=== PATIENT | female | born 1990 | race Caucasian/White ===

== ENCOUNTER 2020-03-11 17:50 | Emergency (ER) | payer OTHER, SELFPAY ==
--- NOTE | ~2020-03-11 | XR_ITS ---
XR wrist RT min 3V DATE: 03/11/2020 18:27 INDICATION: Box fell on wrist. Generalized wrist and posterior metacarpal area pain TECHNIQUE: 4 views COMPARISON: None FINDINGS: No fracture or dislocation, periosteal reaction or bone destruction. Joint spaces are prese rved. No erosive change. IMPRESSION: Negative Reviewed, dictated and finalized at location A. IMPRESSION: Negative
[2020-03-11 18:03] VITALS: BP 108/72; PULSE 83; RESP 18; TEMP 36.7; O2SAT 99
--- NOTE | 2020-03-11 18:31 | ED.UPPEXIN ---
HPI - Extremity Injury (Upper) General Chief Complaint: Extremity Injury, Upper <Joyce Virk PA-C - Last Filed: 03/11/20 19:09> Stated Complaint: right wrist injury <Joyce Virk PA-C - Last Filed: 03/11/20 19:09> Time Seen by Provider: 03/11/20 18:03 <Joyce Virk PA-C - Last Filed: 03/11/20 19:09> Source: patient <Joyce Virk PA-C - Last Filed: 03/11/20 19:09> Mode of arrival: ambulatory <Joyce Virk PA-C - Last Filed: 03/11/20 19:09> Limitations: no limitations <Joyce Virk PA-C - Last Filed: 03/11/20 19:09> History of Present Illness HPI narrative: This is a 29 year old female that presents to the ER for right wrist injury today. Reports she was at work and a box was falling off of a top shelf and she went to catch it with her right wrist. Reports pain in the right wrist since. Worse with movement and relieved with rest. Denies decreased range of motion or numbness. <Joyce Virk PA-C - Last Filed: 03/11/20 19:09> Related Data Allergies/Adverse Reactions: Allergies Allergy/AdvReac Type Severity Reaction Status Date / Time No Known Allergies Allergy Unverified 12/26/17 20:20 <Joyce Virk PA-C - Last Filed: 03/11/20 19:09> Review of Systems Review of Systems: Narrative: CONSTITUTIONAL: Denies fever SKIN: Denies rash MUSCULOSKELETAL: Reports joint pain, and myalgia. NEUROLOGIC: Denies numbness <Joyce Virk PA-C - Last Filed: 03/11/20 19:09> All systems reviewed & are unremarkable except as noted in HPI and below <Joyce Virk PA-C - Last Filed: 03/11/20 19:09> REPLACED BY [facility] Past Medical History Medical History: Medical History (Updated 03/11/20 @ 19:08 by Joyce Virk PA-C) History of borderline personality disorder <Joyce Virk PA-C - Last Filed: 03/11/20 19:09> Social History Social History: Social History (Updated 03/11/20 @ 18:35 by Joyce Virk PA-C) Substance use: never <Joyce Virk PA-C - Last Filed: 03/11/20 19:09> Exam Narrative: Exam Narrative: GENERAL: Well-appearing, well-nourished, and in no acute distress. HEAD: Normocephalic, atraumatic. EYES: EOMI. EXTREMITIES: Normal range of motion. No edema or obvious deformity. Normal radial pulses. Normal sensation SKIN: Warm, dry, no rash. NEURO: No focal deficits. Alert and oriented x3. PSYCH: Normal mood and affect <Joyce Virk PA-C - Last Filed: 03/11/20 19:09> Course Vital Signs Vital signs: Vital Signs Temperature 36.7 C 03/11/20 18:03 Pulse Rate 83 03/11/20 18:03 Respiratory Rate 18 03/11/20 18:03 Blood Pressure 108/72 03/11/20 18:03 Pulse Oximetry 99 03/11/20 18:03 Temperature 36.7 C 03/11/20 18:03 Pulse Rate 86 03/11/20 19:30 Respiratory Rate 18 03/11/20 19:30 Blood Pressure 117/80 03/11/20 19:30 Pulse Oximetry 99 03/11/20 19:30 <Joyce Virk PA-C - Last Filed: 03/11/20 19:09> Vital Signs Temperature 36.7 C 03/11/20 18:03 Pulse Rate 83 03/11/20 18:03 Respiratory Rate 18 03/11/20 18:03 Blood Pressure 108/72 03/11/20 18:03 Pulse Oximetry 99 03/11/20 18:03 Temperature 36.7 C 03/11/20 18:03 Pulse Rate 86 03/11/20 19:30 Respiratory Rate 18 03/11/20 19:30 Blood Pressure 117/80 03/11/20 19:30 Pulse Oximetry 99 03/11/20 19:30 <Jazmyne Browning MD - Last Filed: 03/11/20 21:06> MDM - Extremity Injury (Upper) MDM Narrative Medical decision making narrative: Patient presents to the emergency department for right wrist injury sustained just prior to arrival. Right wrist x-ray is without acute findings. Patient was instructed on care of wrist sprain. She is to follow-up with primary care doctor. She was given warnings to return to the ER <Joyce Virk PA-C - Last Filed: 03/11/20 19:09> Imaging Data Radiologist's impression: ITS Impressions Wrist X-Ray 03/11/20 18:29 IMPRESSION: Negative
[2020-03-11 19:30] VITALS: BP 117/80; PULSE 86; RESP 18; O2SAT 99
== END 2020-03-11 19:32 | disposition home or self-care (01) ==
PROVIDERS: Emergency Provider Emergency Medicine; PCP Family Medicine
DX: S63.501A Unspecified sprain of right wrist, initial encounter (principal); S66.911A Strain of unspecified muscle, fascia and tendon at wrist and hand level, right hand, initial encounter; W20.8XXA Other cause of strike by thrown, projected or falling object, initial encounter
CPT/HCPCS: 73110; 99283

== ENCOUNTER 2023-05-12 15:44 | Outpatient (CLI) | payer OTHER, SELFPAY ==
[2023-05-12 15:57] LABS: Basophils Percent Auto 0.5 % (0.2-1.2); Eosinophils Absolute Auto 0.1 K/mm3 (0-0.3); Eosinophils Percent Auto 1.5 % (0-4.4); Hematocrit 37.2 % (37.0-47.0); Hemoglobin 11.5 g/dL (12.0-15.0); Immature Granulocyte Absolute 0.02 K/mm3 (0.00-0.031); Immature Granulocyte Percent A 0.3 % (0-0.5); Lymphocytes Absolute Auto 1.38 K/mm3 (0.9-3.2); Lymphocytes Percent Auto 21.2 % (18.3-44.2); Mean Corpuscular HGB Conc 30.9 g/dl (32-36); Mean Corpuscular Hemoglobin 24.8 pg (26-34); Mean Corpuscular Volume 80.3 fl (80-100); Mean Platelet Volume 9.2 fl (7.4-10.4); Monocytes Absolute Auto 0.4 K/mm3 (0.1-0.6); Monocytes Percent Auto 5.4 % (2.6-8.5); Neutrophils Absolute Auto 4.6 K/mm3 (1.3-6.7); Neutrophils Percent Auto 71.1 % (45.5-73.1); Platelet Count Result 425 k/mm3 (150-375); Red Blood Count 4.63 M/mm3 (4.2-5.4); Red Cell Distribution Width 18.2 % (11.5-14.5); White Blood Count 6.5 K/mm3 (4.5-10.0)
[2023-05-12 18:32] LABS: Iron 124 ug/dL (37-170)
[2023-05-12 18:55] LABS: Percent Iron Saturation 24 % (20-50)
[2023-05-12 18:59] LABS: Alanine Aminotransferase 15 U/L (6-35); Albumin Level 4.6 g/dL (3.5-5.1); Alkaline Phosphatase 69 U/L (38-126); Anion Gap 9 mmol/L (8-16); Aspartate Amino Transferase 34 U/L (14-36); Bilirubin,Total 0.3 mg/dL (0.2-1.3); Blood Urea Nitrogen 11 mg/dL (7-17); Calcium 9.4 mg/dL (8.4-10.2); Carbon Dioxide 25 mmol/L (22-30); Chloride 105 mmol/L (98-107); Estimated Glomerular Filt Rate > 60; Glucose 89 mg/dL (65-110); Potassium 4.2 mmol/L (3.4-5.0); Sodium 139 mmol/L (137-145)
[2023-05-12 20:03] LABS: Folic Acid 12.5 ng/mL (2.76->20)
[2023-05-18 05:04] LABS: Methylmalonic Acid 91 nmol/L (87-318)
[2023-05-20 09:53] LABS: Soluble Transferrin Receptor 1.93 mg/L (0.76-1.76)
== END 2023-05-12 15:45 | disposition home or self-care (01) ==
PROVIDERS: Nurse Practitioner Family; PCP Family Medicine; Visit Provider Internal Medicine Hematology & Oncology
DX: D50.0 Iron deficiency anemia secondary to blood loss (chronic) (principal)
CPT/HCPCS: 36415; 80053; 82607; 82728; 82746; 83540; 83550; 83921; 84238; 85025

== ENCOUNTER 2023-09-03 13:14 | Outpatient (CLI) | payer OTHER, SELFPAY ==
[2023-09-03 13:31] LABS: Basophils Percent Auto 0.3 % (0.2-1.2); Eosinophils Absolute Auto 0.1 K/mm3 (0-0.3); Eosinophils Percent Auto 1.3 % (0-4.4); Hematocrit 39.9 % (37.0-47.0); Hemoglobin 12.9 g/dL (12.0-15.0); Immature Granulocyte Absolute 0.02 K/mm3 (0.00-0.031); Immature Granulocyte Percent A 0.3 % (0-0.5); Lymphocytes Absolute Auto 1.66 K/mm3 (0.9-3.2); Lymphocytes Percent Auto 27.3 % (18.3-44.2); Mean Corpuscular HGB Conc 32.3 g/dl (32-36); Mean Corpuscular Volume 89.7 fl (80-100); Mean Platelet Volume 9.4 fl (7.4-10.4); Monocytes Absolute Auto 0.4 K/mm3 (0.1-0.6); Monocytes Percent Auto 5.9 % (2.6-8.5); Neutrophils Percent Auto 64.9 % (45.5-73.1); Platelet Count Result 315 k/mm3 (150-375); Red Blood Count 4.45 M/mm3 (4.2-5.4); Red Cell Distribution Width 16.2 % (11.5-14.5); White Blood Count 6.1 K/mm3 (4.5-10.0)
[2023-09-03 20:19] LABS: Iron 121 ug/dL (37-170)
[2023-09-03 20:28] LABS: Percent Iron Saturation 28 % (20-50)
[2023-09-03 20:35] LABS: Anion Gap 8 mmol/L (4-12); Blood Urea Nitrogen 16 mg/dL (7-17); Calcium 9.8 mg/dL (8.4-10.2); Carbon Dioxide 26 mmol/L (22-30); Chloride 106 mmol/L (98-107); Estimated Glomerular Filt Rate > 60; Glucose 88 mg/dL (65-110); Potassium 4.3 mmol/L (3.4-5.0); Sodium 140 mmol/L (137-145)
[2023-09-03 21:42] LABS: Folic Acid 9.5 ng/mL (2.76->20)
== END 2023-09-03 13:15 | disposition home or self-care (01) ==
LOC: ANHLAB 13:15
PROVIDERS: Nurse Practitioner Family; PCP Family Medicine; Visit Provider Internal Medicine Hematology & Oncology
DX: D51.9 Vitamin B12 deficiency anemia, unspecified (principal); D50.0 Iron deficiency anemia secondary to blood loss (chronic)
CPT/HCPCS: 36415; 80048; 82607; 82728; 82746; 83540; 83550; 85025

== ENCOUNTER 2024-05-10 12:36 | Outpatient (CLI) | payer OTHER, SELFPAY ==
[2024-05-10 12:57] LABS: Basophils Percent Auto 0.3 % (0.2-1.2); Eosinophils Absolute Auto 0.2 K/mm3 (0-0.3); Eosinophils Percent Auto 2.6 % (0-4.4); Hematocrit 39.7 % (37.0-47.0); Immature Granulocyte Absolute 0.01 K/mm3 (0.00-0.031); Immature Granulocyte Percent A 0.2 % (0-0.5); Lymphocytes Absolute Auto 1.56 K/mm3 (0.9-3.2); Lymphocytes Percent Auto 25.2 % (18.3-44.2); Mean Corpuscular HGB Conc 32.7 g/dl (32-36); Mean Corpuscular Hemoglobin 29.8 pg (26-34); Mean Corpuscular Volume 91.1 fl (80-100); Mean Platelet Volume 9.1 fl (7.4-10.4); Monocytes Absolute Auto 0.3 K/mm3 (0.1-0.6); Monocytes Percent Auto 4.7 % (2.6-8.5); Neutrophils Absolute Auto 4.1 K/mm3 (1.3-6.7); Platelet Count Result 347 k/mm3 (150-375); Red Blood Count 4.36 M/mm3 (4.2-5.4); Red Cell Distribution Width 13.4 % (11.5-14.5); White Blood Count 6.2 K/mm3 (4.5-10.0)
[2024-05-10 16:38] LABS: Alanine Aminotransferase 13 U/L (6-35); Albumin Level 4.4 g/dL (3.5-5.1); Alkaline Phosphatase 64 U/L (38-126); Anion Gap 8 mmol/L (4-12); Aspartate Amino Transferase 46 U/L (14-36); Bilirubin,Total 0.4 mg/dL (0.2-1.3); Blood Urea Nitrogen 11 mg/dL (7-17); Calcium 9.3 mg/dL (8.4-10.2); Carbon Dioxide 25 mmol/L (22-30); Chloride 107 mmol/L (98-107); Cholesterol 167 mg/dL (0-200); Estimated Glomerular Filt Rate > 60; Glucose 86 mg/dL (65-110); HDL Direct 52 mg/dL; Potassium 4.3 mmol/L (3.4-5.0); Sodium 140 mmol/L (137-145); Triglycerides 83 mg/dL (<150)
[2024-05-10 16:39] LABS: Anion Gap 8 mmol/L (4-12); Blood Urea Nitrogen 11 mg/dL (7-17); Calcium 9.2 mg/dL (8.4-10.2); Carbon Dioxide 24 mmol/L (22-30); Chloride 107 mmol/L (98-107); Estimated Glomerular Filt Rate > 60; Glucose 88 mg/dL (65-110); Potassium 4.1 mmol/L (3.4-5.0); Sodium 139 mmol/L (137-145)
[2024-05-10 16:44] LABS: Iron 109 ug/dL (37-170)
[2024-05-10 16:48] LABS: LDL Cholesterol Direct 87 mg/dL
[2024-05-10 16:54] LABS: Percent Iron Saturation 22 % (20-50)
[2024-05-10 17:04] LABS: Free T4 Free Thyroxine 0.84 ng/dL (0.78-2.19)
[2024-05-10 17:07] LABS: Thyroid Stimulating Hormone 0.921 uIU/mL (0.465-4.680); Total Triiodothyronine (T3) 1.59 NG/ML (0.97-1.69)
== END 2024-05-10 12:37 | disposition home or self-care (01) ==
LOC: ANHLAB 12:37
PROVIDERS: PCP Family Medicine; Visit Provider Internal Medicine Hematology & Oncology
DX: D50.9 Iron deficiency anemia, unspecified (principal); E78.5 Hyperlipidemia, unspecified; R53.83 Other fatigue
CPT/HCPCS: 36415; 80048; 80053; 80061; 82607; 82728; 83540; 83550; 84439; 84443; 84480; 85025

== ENCOUNTER 2024-08-12 10:25 | Outpatient (CLI) | payer OTHER, SELFPAY ==
[2024-08-12 10:43] LABS: Hematocrit 38.1 % (37.0-47.0); Hemoglobin 12.7 g/dL (12.0-15.0); Mean Corpuscular HGB Conc 33.3 g/dl (32-36); Mean Corpuscular Hemoglobin 30.5 pg (26-34); Mean Corpuscular Volume 91.6 fl (80-100); Mean Platelet Volume 9.3 fl (7.4-10.4); Platelet Count Result 304 k/mm3 (150-375); Red Blood Count 4.16 M/mm3 (4.2-5.4); Red Cell Distribution Width 13.2 % (11.5-14.5); White Blood Count 7.2 K/mm3 (4.5-10.0)
--- OUTSIDE RECORDS SUMMARY | 2024-08-12 12:03 | XMS_ITS | Clinical Summary ---
Author Organization [facility] [address] [place] [id number] Care Team Providers Care Tuna Purse Seiner Name Role Phone Jeff Quispe MD Primary Care Provider [phone] Allergies Active Allergy Reactions Criticality Noted Date Comments Cat Dander Eye irritation Low 06/04/2023 Pollen Extracts Eye irritation Low 06/04/2023 Medications lamoTRIgine (LaMICtal) 100 mg tablet Take 1 tablet (100 mg total) by mouth daily 05/29/2023 Active Junel FE 1.5/30, 28, 1.5 mg-30 mcg (21)/75 mg (7) per tablet Take 1 tablet by mouth daily 05/29/2023 Active rosuvastatin (CRESTOR) 20 mg tablet Take 1 tablet (20 mg total) by mouth daily Active escitalopram (LEXAPRO) 20 mg tablet Take 1 tablet (20 mg total) by mouth daily Active busPIRone (BUSPAR) 15 mg tablet Take 1 tablet (15 mg total) by mouth 3 (three) times a day 03/17/2023 Active cetirizine (ZyrTEC) 10 mg tablet Take 1 tablet (10 mg total) by mouth daily Active Active Problems No known active problems Surgical History Surgery Date Site/Laterality Comments FOOT SURGERY TONSILLECTOMY 06/02/2011 - 06/01/2012 Medical History Medical History Date Comments ADHD (attention deficit hyperactivity disorder) Anemia Anxiety Hypercholesteremia Allergic rhinitis Family History * Patient is adopted Medical History Relation Name Comments Alcohol abuse Brother Mental illness Brother Alcohol abuse Father Mental illness Father Alcohol abuse Mother Mental illness Mother Alcohol abuse Sister Mental illness Sister Relation Name Status Comments Brother Father Mother Sister Social History Tobacco Use Types Packs/Day Years Used Date Smoking Tobacco: Never Tobacco Cessation:Counseling Given: Not Answered Personal Safety Answer Date Recorded Getting School Help Needed Not on file 05/19 Comments Unknown Sex and Gender Information Value Date Recorded Sex Assigned at Not on file 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 Gender Identity Not on file Sexual Orientation Not on file Obstetrics History Plan of Treatment Health Maintenance Due Date Last Done Comments Cervical Cancer Screening 1989 Depression Screening 1989 Hepatitis C Screening 1989 Varicella Vaccines (1 of 2 - 13+ 2-dose series) 2002 Regular Well Visit/Exam 18-64 2007 DTaP/Tdap/Td Vaccine (6 - Tdap) 06/22/2008 06/21/2008, 01/11/2003, 01/24/1995, Additional history exists HPV Vaccines (2 - 3-dose series) 07/19/2008 06/21/2008 Covid-19 Vaccine ( season) 2024 04/29/2021, 10/11/2020, 09/13/2020 Influenza Vaccine (#1) 2024 04/03/2020 Hepatitis B Screening Completed 09/24/2000 , 03/10/2000, 10/20/1999 Pneumococcal vaccine <65 Aged Out No longer eligible based on patient's age to complete this topic Insurance [facility] Care Teams Tuna Purse Seiner Relationship Specialty Start Date End Date Jeff Quispe MD PCP - General Family Medicine 04/29/23
--- OUTSIDE RECORDS SUMMARY | 2024-08-12 12:03 | XMS_ITS | Clinical Summary ---
Author Organization [facility] [address] Address [address] [place] [address] Care Team Providers Care Supervisor Offset Plate Preparation Name Role Phone Jeff Quispe MD Primary Care Provider + [phone] Allergies No known active allergies Medications buspirone HCl (BUSPIRONE ORAL) Take 15 mg by mouth daily. Active norethindrone ac-eth estradiol (JUNEL ., ORAL) Take by mouth. Active cetirizine (ZyrTEC) 10 mg tablet Take 10 mg by mouth daily. Active lamoTRIgine (LaMICtal) 150 mg tablet Take 150 mg by mouth daily. Active escitalopram oxalate (LEXAPRO) 20 mg tablet Take 20 mg by mouth daily. Active rosuvastatin (CRESTOR) 20 mg tablet Take 20 mg by mouth daily. Active Active Problems No known active problems Encounters Date Type Department Care Team Description 08/07/2024 External Device Data [facility]STRACTION Provider, Abstract 08/04/2024 External Device Data [facility] Provider, Abstract 07/21/2024 External Device Data [facility]CTION Provider, Abstract 06/30/2024 External Device Data [facility] Provider, Abstract 06/24/2024 External Device Data [facility]CTION Provider, Abstract 05/14/2024 10:45 AM CHILDCARE WORKER Office Visit [facility] Oncology and Hematology - [address] [address] Jay Andersen MD Iron deficiency anemia due to chronic blood loss (Primary Dx); Anemia due to vitamin B12 deficiency, unspecified B12 deficiency type from Last 3 Months Family History Medical History Relation Name Comments No Known Problems Brother Alcohol abuse Father unsure Alcohol abuse Mother unsure No Known Problems Sister Relation Name Status Comments Brother Alive Father unsure Alive Mother unsure Sister Alive Social History Tobacco Use Types Packs/Day Years Used Date Smoking Tobacco: Never Smokeless Tobacco: Never Tobacco Cessation:Counseling Given: Not Answered Alcohol Use Standard Drinks/Week Comments Yes 0 (1 standard drink = 0.6 oz pur e alcohol) Socially once a year Comments Unknown Sex and Gender Information Value Date Recorded Sex Assigned at Not on file Legal Sex Female 11:00 AM CHILDCARE WORKER Gender Identity Not on file Sexual Orientation Not on file Last Filed Vital Signs Vital Sign Reading Time Taken Comments Blood Pressure 109/70 05/14/2024 10:51 AM CHILDCARE WORKER Pulse 80 05/14/2024 10:51 AM CHILDCARE WORKER Temperature 36.6 C (97.8 F) 05/14/2024 10:51 AM CHILDCARE WORKER Respiratory Rate 16 05/14/2024 10:51 AM CHILDCARE WORKER Oxygen Saturation 98% 05/14/2024 10:51 AM CHILDCARE WORKER Inhaled Oxygen Concentration - - Weight 70.3 kg (155 lb) 05/14/2024 10:51 AM CHILDCARE WORKER Height 157.5 cm (5' 2 ) 05/12/2023 2:46 PM CHILDCARE WORKER Body Mass Index 28.35 05/12/2023 2:46 PM CHILDCARE WORKER Plan of Treatment Upcoming Encounters Date Type Department Care Team (Late st Contact Info) Description 08/13/2024 12:15 PM CDT Office Visit [facility] Oncology and Hematology - [address] [facility] [address] [place] [address] Jay Andersen MD [address] [facility] [address] [place] [address] Health Maintenance Due Date Last Done Comments Pre-Diabetes and Diabetes Screening 1989 DTAP/TDAP/TD VACCINES (1 - Tdap) 2008 HEPATITIS B VACCINES (1 of 3 - 19+ 3-dose series) 2008 CERVICAL CANCER SCREENING 2019 Preventative Visit-Managed Medicaid 10/12/2023 10/10/2022 INFLUENZA VACCINE (#1) 2024 HPV VACCINES Aged Out No longer eligi ble based on patient's age to complete this topic Insurance [facility] MEDICAID Care Teams Supervisor Offset Plate Preparation Relationship Specialty Start Date End Date Jeff Quispe MD [address] [place] [address] PCP - General Family Practice 05/12/23
--- OUTSIDE RECORDS SUMMARY | 2024-08-12 12:03 | XMS_ITS | Clinical Summary ---
Author Organization 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 Gender Identity Not on file Sexual Orientation Not on file Plan of Treatment Health Maintenance Due Date Last Done Comments Hepatitis C Virus (HCV) Screening 1989 TdaP Immunization 1989 Hepatitis B Immunization (1 of 3 - 19+ 3-dose series) 2008 Pap Smear 2010 Cervical Cancer Screening (CCS) 2019 HPV/Cotest 2019 Influenza Immunization (#1) 2024 SARS-COV-2 Immunization ( season) 2024 Respiratory Syncytial Virus (RSV) Immunization (Adult) (1 - 1-dose 75+ series) 2064 Meningococcal Immunization (ACWY) Aged Out No longer eligible based on patient's age to complete this topic Pneumococcal Immunization Combined Aged Out No longer eligible based on patient's age to complete this topic Rotavirus Immunization Aged Out No lo nger eligible based on patient's age to complete this topic
--- OUTSIDE RECORDS SUMMARY | 2024-08-12 12:03 | XMS_ITS | Data Portability ---
Author Organization [facility] [place] Address [address] [place] [address] [place] [address] Care Team Providers Care Clerk Of Court Name Role Phone ABRANPEGMICHELE Primary Care Provider Assessment Encounter Date Assessment Date Assessment LastModified by Organization Details LastModified Time 03/09/2024 03/09/2024 Patient here for suspected UTI. Patient c/o urgency, frequency and burning with urination. Patient left urine sample for testing. Testing showed positive UTI. Per Dr Banegas, patient to have Cipro [email or web address] Not available 03/09/2024 10:46:36 Plan of Treatment Reminders Order Date Submit Date Provider Last Modified By Organization Details Last Modified Time Details Appointments [facility] 2024 10:00A M KATTY Villalta Not available Not available Not available Lab urinalysi s, dipstick 2023 024 [email or web address] [place], [address], [place], [address], 03/09/2024 10:47:16 culture, urine 2023 024 [facility] (Lab), [address], [place], [address], 03/11/2024 06:38:40 Referral None recorded. Procedures None recorded. Surgeries hysterosc opy, surgical, with biopsy of endometri um and/or polypecto my (SURG) 2022 023 [id number] [facility], [address], [address], [place], [address], 03/11/2023 17:42:19 Imaging US, pelvis 2022 023 [email or web address] [place], [address], [place], [address], 02/22/2023 20:43:27 US, transvagi nal 2022 023 [email or web address] [place], [address], [place], [address], 02/22/2023 20:43:27 Medication Orders ciproflox acin 500 mg tablet 2023 024 [id number], [address], [place], [id number], 03/09/2024 10:57:15 metformin 500 mg tablet 2022 023 [facility] #[id number], [address], [place], [id number], 03/07/2023 12:34:04 Loestrin Fe 1.5/30 (28-Day) 1.5 mg-30 mcg (21)/75 mg (7) tablet [address] [facility][id number], [address], [place], [id number], 03/07/2023 18:24:56 Patient TargetsNo targets recorded. Patient InstructionsNo instructions recorded. Reason for Referral None Reported. Results Created Date Observation Date Name Description Value Unit Range Abnormal Flag Note LastModifiedBy Organization Detail LastModifiedTime 02/22/2002/21/2023 CBC W/DIF F WBC 4.6 10'3/ uL 3.6-10 .2 Not Available [facility] (Lab) [address], [place], [address], 03/03/2023 14:28:45 02/22/20 23 02/21/2023 CBC W/DIF F RBC 4.34 10'6/ uL (based on docume nted legal sex) 4.10-5 .30 Not Available [facility] (Lab) [address], [place], [address], 03/03/2023 14:28:45 02/22/20 23 02/21/2023 CBC W/DIF F HGB 9.6 g/dL (based on docume nted legal sex) 11.9-1 5.8 low Not Available [facility] (Lab) [address], [place], [address], 03/03/2023 14:28:45 02/22/20 23 02/21/2023 CBC W/DIF F HCT 33.4 % (based on docume nted legal sex) 37.4-4 8.3 low Not Available [facility] (Lab) [address] , [place], [address], 03/03/2023 14:28:45 02/22/20 23 02/21/2023 CBC W/DIF F MCV 77.0 fL 82.0-9 9.0 low Not Available [facility] (Lab) [address], [place], [address], 03/03/2023 14:28:45 02/22/20 23 02/21/2023 CBC W/DIF F MCH 22.1 pg 27.0-3 3.0 low Not Available [facility] (Lab) [address] [facility], [place], [address], 03/03/2023 14:28:45 02/22/20 23 02/21/2023 CBC W/DIF F MCHC 28.7 g/dL 32.0-3 6.0 low Not Available [facility] (Lab) [address] [facility], [place], [address], 03/03/2023 14:28:45 02/22/20 23 02/21/2023 CBC W/DIF F RDW 19.0 % 11.0-1 5.0 high Not Available [facility] (Lab) [address], [place], [address], 03/03/2023 14:28:45 02/22/20 23 02/21/2023 CBC W/DIF F plt 346 10'3/ uL 150-45 0 Not Available [facility] (Lab) [address], [place], [address], 03/03/2023 14:28:45 02/22/20 23 02/21/2023 CBC W/DIF F MPV 9.8 fL 9.8-12 .7 Not Available [facility] (Lab) [address], [place], [address], 03/03/2023 14:28:45 02/22/20 23 02/21/2023 CBC W/DIF F NRBC's 0.0 % 0 Not Available [facility] (Lab) [address], [place], [address], 03/03/2023 14:28:45 02/22/20 23 02/21/2023 CBC W/DIF F absolute NRBCs 0.0 10'3/ uL 0 Not Available [facility] (Lab) [address], [place], [address], 03/03/2023 14:28:45 02/22/20 23 02/21/2023 CBC W/DIF F neutrophils 58.8 % 37.0-7 2.0 Not Available [facility] (Lab) [address], [place], [address], 03/03/2023 14:28:45 02/22/20 23 02/21/2023 CBC W/DIF F lymphocytes 32.3 % 16.0-4 8.0 Not Available [facility] (Lab) [address], [place], [address], 03/03/2023 14:28:45 02/22/20 23 02/21/2023 CBC W/DIF F monocytes 6.2 % 4.0-14 .0 Not Available [facility] (Lab) [address], [place], [address], 03/03/2023 14:28:45 02/22/20 23 02/21/2023 CBC W/DIF F eosinophils 1.8 % 0.0-9. 0 Not Available [facility] (Lab) [address] [facility], [place], [address], 03/03/2023 14:28:45 02/22/20 23 02/21/2023 CBC W/DIF F basophils 0.7 % 0.0-2. 0 Not Available [facility] (Lab) [address] [facility], [place], [address], 03/03/2023 14:28:45 02/22/20 23 02/21/2023 CBC W/DIF F immature granulocytes 0.2 % no define d refere nce range Not Available [facility] (Lab) [address] [facility], [place], [address], 03/03/2023 14:28:45 02/22/20 23 02/21/2023 CBC W/DIF F absolute neutrophils 2.7 10'3/ uL 1.1-6. 0 Not Available [facility] (Lab) [address] [facility], [place], [address], 03/03/2023 14:28:45 02/22/20 23 02/21/2023 CBC W/DIF F absolute lymphocytes 1.5 10'3/ uL 0.7-3. 4 Not Available [facility] (Lab) [address] [facility], [place], [address], 03/03/2023 14:28:45 02/22/20 23 02/21/2023 CBC W/DIF F absolute monocytes 0.3 10'3/ uL 0.3-1. 0 Not Available [facility] (Lab) [address] [facility], [place], [address], 03/03/2023 14:28:45 02/22/20 23 02/21/2023 CBC W/DIF F absolute eosinophils 0.1 10'3/ uL 0.0-0. 6 Not Available [facility] (Lab) [address] [facility], [place], [address], 03/03/2023 14:28:45 02/22/20 23 02/21/2023 CBC W/DIF F absolute basophils 0.0 10'3/ uL 0.0-0. 1 Not Available [facility] (Lab) [address] [facility], [place], [address], 03/03/2023 14:28:45 02/22/20 23 02/21/2023 CBC W/DIF F absolute immature granulocytes 0.0 10'3/ uL 0.00-0 .10 2022 4:44 AM: P indic ates parti al resul ts on a panel have been relea sed. Addit ional resul ts will follo w. 2022 4:44 AM: This resul t has been final verif ied. No addit ional or dos santos ed resul ts are expec liset. Not Available [facility] (Lab) [address] [facility], [place], [address], 03/03/2023 14:28:45 02/22/20 23 02/21/2023 HEMOG LOBIN A1C hemoglobin A1C 5.8 % 0-5.6 high The Ameri can Diabe jarad Assoc iatio n recom mends that a prima ry goal of thera py tameka banks be a HBA1C of < 7% and that physi cians shoul d reeva luate the treat ment regim en in patie nts with HBA1C value s consi stent ly > 8%. <5.7% Ursula l 5.7 - 6.4% Incre ased risk for diabe jarad >=6.5 % Diagn ostic of diabe jarad <7.0% Goal of thera py >8.0% Actio n sugge sted Not Available [facility] (Lab) [address] [place], [address], 03/03/2023 14:28:45 02/22/20 23 02/21/2023 DHEA SULFA TE DHEA-sulfate 120 ug/dL Femal e Range s Age(y ) Range (ug/d L) 10-15 34-28 0 15-20 65-36 8 20-25 148-4 07 25-35 99-34 0 35-45 61-33 7 45-55 35-25 6 55-65 19-20 5 65-75 9-246 > 75 12-15 4 Not Available [facility] (Lab) [address] [facility], [place], [address], 03/03/2023 14:28:46 02/22/20 23 02/21/2023 ESTRA DIOL estradiol 52.2 pg/mL This assay was perfo rmed using [employer] ratio n reage nts and test kits. Value s obtai eduardo with other assay metho ds or kits canno t be used inter dos santos eay . Femal e Estra diol Range s: Folli cular phase 12.4- 233 pg/mL Ovula tion phase 41.0- 398 pg/mL Lutea l phase 22.3- 341 pg/mL Postm enopa usal< 5-138 pg/mL Healt hy Pregn ant Women 1st Trime ster1 54-32 43 pg/mL 2nd Trime ster1 561-2 1280 pg/mL 3rd Trime ster8 525-> 91641 pg/mL Not Available [facility] (Lab) [address] [facility], [place], [address], 03/03/2023 14:28:46 02/22/20 23 02/21/2023 PROGE STERO NE progesterone 0.12 NG/mL This assay was perfo rmed using [employer] reage nts and test kits. Value s obtai eduardo with other assay metho ds or kits canno t be used inter dos santos eably . Femal e Proge stero ne Range s: Folli cular phase 0.06- 0.89 ng/mL Ovula tion phase 0.12- 12.00 ng/mL Lutea l phase 1.83- 23.90 ng/mL Postm enopa usal< 0.05- 0.13 ng/mL Healt hy Pregn ant Women 1st Trime ster1 1.0-4 4.30 2nd Trime ster2 5.40- 83.30 3rd Trime ster5 8.70- 214.0 0 Not Available [facility] (Lab) [address] [facility], [place], [address], 03/03/2023 14:28:47 02/22/20 23 02/21/2023 PROLA CTIN prolactin, total 26.20 NG/mL 4.79-2 3.30 high This assay was perfo rmed using [employer] reage nts and test kits. Value s obtai eduardo with other assay metho ds or kits canno t be used inter dos santos eably . Not Available [facility] (Lab) [address] [facility], [place], [address], 03/03/2023 14:28:47 02/22/20 23 02/21/2023 LH (LUTE NIZIN G HORMO NE) LH 12.9 mIU/m L This assay was perfo rmed using [employer] reage nts and test kits. Value s obtai eduardo with other assay metho ds or kits canno t be used inter dos santos eably . Femal es Mid-F ollic ular: 2.4-1 2.6 mIU/m L Mid-C ycle: 14.0- 95.6 mIU/m L Mid-L uteal : 1.0-1 1.4 mIU/m L Postm enopa use: 7.7-5 8.5 mIU/m L Not Available [facility] (Lab) [address] [place], [address], 03/03/2023 14:28:47 02/22/20 23 02/21/2023 FSH FSH 6.7 mIU/m L This assay was perfo rmed using [employer] reage nts and test kits. Value s obtai eduardo with other assay metho ds or kits canno t be used inter dos santos eably . Femal es Folli cular : 3.5-1 2.5 mIU/m L Ovula tion: 4.7-2 1.5 mIU/m L Lutea l: 1.7-7 .7 mIU/m L Postm enopa use: 25.8- 134.8 mIU/m L Not Available [facility] (Lab) [address] [facility], [place], [address], 03/03/2023 14:28:48 02/22/20 23 02/21/2023 TSH, REFLE X FREE T4 TSH 1.62 uIU/m L 0.30-5 .33 Not Available [facility] (Lab) [address] [facility], [place], [address], 03/03/2023 14:28:48 02/22/20 23 02/21/2023 HUMAN SEX HORMO NE DIANA NG GLOBU SHIRLEY sex hormone binding globulin 32.1 nmole s/L 18.2-1 35.5 Not Available [facility] (Lab) [address] [facility], [place], [address], 03/03/2023 14:28:49 02/22/20 23 02/21/2023 17-OH PROGE STERO NE 17-hydroxypr ogesterone, lc/MS/MS 41 NG/dL Adult Femal e Refer ence Range s for 17-Hy droxy proge stero ne: Pre-M enopa usal Mid Folli cular : 23-10 2 ng/dL Pre-M enopa usal Surge : 67-34 9 ng/dL Pre-M enopa usal Mid Lutea l: 139-4 31 ng/dL Postm enopa usal Phase : < or = 45 ng/dL Pregn mendy: First Trime ster: 78-45 7 ng/dL Secon d Trime ster: 90-35 7 ng/dL Third Trime ster: 144-5 78 ng/dL This test was devel oped and its keshav tical perfo rmanc e anna cteri stics have been deter mined by [facility] . It has not been clear ed or appro sai by FDA. This assay has been valid ated pursu ant to the CLIA regul ation s and is used for clini lesley purpo ses. Perfo rming Organ izati on [facility] n: Site ID: [id number] Name: [facility] amber Currie trannathalie , Addre ss: [id number] [place] [address] Direc tor: Merle burks MD,Ph D,HARESH Not Available [facility] (Lab) [address] [place], [address], 03/03/2023 14:28:49 02/22/20 23 02/21/2023 TESTO STERO NE, FREE( DIALY SIS) AND TOTAL (LC/M S/MS) testosterone , total 93 NG/dL 2-45 high For addit ional [facility] e refer to http: //[facility] petra latif.que stdia gnost ics.c om/fa q/Tot Orlin Méndez [facility] (This link is being provi ded for [facility] nal/e ducat ional purpo ses only. ) Not Available [facility] (Lab) [address] [place], [address], 03/03/2023 14:28:50 02/22/20 23 02/21/2023 TESTO STERO NE, FREE( DIALY SIS) AND TOTAL (LC/M S/MS) testosterone , free 19.9 pg/mL 0.1-6. 4 high This test was candy francis and its keshav tical perfo rmanc e anna cteri stics have been deter mined by [facility] tr[facility] . It has not been clear ed or appro sai by FDA. This assay has been valid ated pursu ant to the CLIA regul ation s and is used for clini lesley purpo ses. Perfo rming Organ izati on Infor matio n: Site ID: [id number] Name: [facility] amber fernandez , Addre ss: [id number] [place] [address] Direc tor: Merle burks MD,Ph D,HARESH Not Available [facility] (Lab) [address] [facility], [place], [address], 03/03/2023 14:28:50 03/28/2003/28/2023 SURGI LESLEY PATHO LOGY surgical pathology SEE RESULT S BELOW CASE REPOR T: Surgi lesley Patho logy Repor t Case: [id number] Autho sandrine hernandez Provi calos: Lucius Banegas MD Colle cted: 03/28 1614 Order ing Locat ion: [place] [facility] Recei sai: 03/29 0207 Patho logis t: Regis Crocker MD Speci men: Endom etriu m, Endom etria l polyp FINAL DIAGN OSIS: Endom etriu m, polyp ectom y: -Poly poid fragm ents of early secre tory phase endom etriu m, post ovula tory day 3 to 4. -No endom etria l hyper plasi a or malig nant tumor ident ified . Tonya banks by Regis Crocker MD on 03/31 at 2:40 PM ----- ----- ----- ----- ----- ----- ----- ----- ----- ----- ----- ----- ----- ----- ----- ----- ----- ---- CLINI LESLEY INFOR MATIO N: n85.9 MICRO SCOPI C DESCR IPTIO N: A micro scopi c exami natio n was perfo rmed. GROSS DESCR IPTIO N: A. Endom etriu m. The speci men is label ed with the patie nt's name, demog re cs and endom etria l polyp . Recei sai in forma shirley are 2 piece s of pink- gtz tissu e measu ring 0.5 and 0.[address] [facility]. The entir e speci men is submi tted in one casse tte. Gross ed by Yissel Bearden Not Available [facility] (Lab) [address] [facility], [place], [address], 03/31/2023 15:43:15 03/09/2003/09/2024 CULTU RE: URINE result report SEE RESULT S BELOW Test: Cultu re: Urine Speci men Sourc e: Urine - Clean Catch Speci men Type: Urine Speci men Date: 2023 1102 Resul t Date: 03/11 0534 Resul t Statu s: Final resul t Abnor mal: No Resul ting Lab: [facility] [address] [facility] [address] Tel: CULTU RE ----- ----- ----- --- Cultu re resul t (>=3 organ isms prese nt) indic ates possi ble conta minat ion. Repea t cultu re if sympt oms indic ate. Not Available [facility] (Lab) [address], [place], [address], 03/11/2024 06:38:40 03/09/2003/09/2024 urina lysis , dipst ick Leukocytes ++ Not Available [facility] [address], [place], [address], 03/09/2024 10:32:49 03/09/20 24 03/09/2024 urina lysis , dipst ick Nitrite NEG Not Available [place] [address], [place], [address], 03/09/2024 10:32:49 03/09/2003/09/2024 urina lysis , dipst ick Urobilinogen NEG Not Available [facility] roxanna [address], [place], [address], 03/09/2024 10:32:49 03/09/2003/09/2024 urina lysis , dipst ick Protein ++ Not Available [place] [address], [place], [address], 03/09/2024 10:32:49 03/09/2003/09/2024 urina lysis , dipst ick pH 5 Not Available [place] [address], [place], [address], 03/09/2024 10:32:49 03/09/2003/09/2024 urina lysis , dipst ick Blood +++ Not Available [place] [address], [place], [address], 03/09/2024 10:32:49 03/09/2003/09/2024 urina lysis , dipst ick Specific [place] 1.020 Not Available [facility] eryn [address], [place], [address], 03/09/2024 10:32:49 03/09/2003/09/2024 urina lysis , dipst ick Ketone NEG Not Available [place] [address], [place], [address], 03/09/2024 10:32:49 03/09/2003/09/2024 urina lysis , dipst ick Bilirubin + Not Available [facility] [address], [place], [address], 03/09/2024 10:32:49 03/09/2003/09/2024 urina lysis , dipst ick Glucose NEG Not Available [place] [address], [place], [address], 03/09/2024 10:32:49 03/09/2003/09/2024 urina lysis , dipst ick Appearance CLOUDY Not Available [facility] [address], [place], [address], 03/09/2024 10:32:49 03/09/20 24 03/09/2024 urina lysis , dipst ick Color DARK YELLOW Not Available [place] [address], [place], [address], 03/09/2024 10:32:49 02/22/20 23 02/21/2023 US, pelvi s No observ ation record ed. [email or web address] [place] [address], [place], [address], 02/21/2023 12:55:05 02/22/20 23 02/21/2023 US, trans vagin al No observ ation record ed. [email or web address] [place] [address], [place], [address], 02/21/2023 12:54:54 02/22/20 23 02/21/2023 US, pelvi s No observ ation record ed. vschroedter [address], [place], [address], 02/24/2023 15:44:20 Result Notes None recorded. Problems Name Problem SNOMED Code Status Onset Date Resolution Date Notes Provider Name and Address Organization Details Recorded Time Pain in female genitalia Active 2017 Dysmenorrh ea;Recorde d Elsewhere: No Locatio n: [facility] Maia rce: EHR Chroni c: N Practice ID: [id number] Billa ble Time: 01:00:00 PM Not Available [facility] 20:16:[address] Concept Active 2017 Encntr for glass cut off tender exam (general) (routine) w/o abn findings;P ractice ID: [id number] Not Available [facility] 4 20:16:43 Finding of menstrual bleeding Active 2017 Menorrhagi a;Recorded Elsewhere: No Locatio n: [facility] Maia rce: EHR Chroni c: N Practice ID: 0001 Billa ble Time: 01:00:00 PM Not Available [facility] 4 20:16:[address] Concept Active 2017 Encntr for general adult medical exam w/o abnormal findings;R ecorded Elsewhere: No Locatio n: [facility] Maia rce: EHR Chroni c: N Practice ID: 0001 Billa ble Time: 01:00:00 PM Not Available [facility] 4 20:16:43 Problem Notes None recorded. Procedures Surgical History Date Name Laterality Status Provider Name and Address Organization Details Recorded Time 03/28/20 23 Hysteroscopy completed Brayan Banegas MD [address], [place], [address], [facility] 04/11/2023 12:43:19 03/28/20 23 Hysteroscopy completed Annel Hernandez [facility] 03/28/2023 15:41:49 02/07/20 23 Date of Last Pap Smear completed Ирина Wing [facility] 04/11/2023 12:10:23 12/10/19 22 completed Fabiana Wilburn [facility] 02/06/2023 16:43:40 12/10/19 22 Date of Last [facility] 02/06/2023 16:43:40 [facility] 02/[facility]/2023 16:43:51 Other completed [facility] 02/06/2023 16:43:51 [facility] 02/06/2023 16:43:51 Imaging Results Imaging Date Name Status LastModified by Organization Details LastModified Time 02/21/2023 US, pelvis completed [email or web address] [place] [address], [place], [address], 02/21/2023 12:55:05 02/21/2023 US, transvaginal completed [email or web address] [facility] [address], [place], [address], 02/21/2023 12:54:54 02/21/2023 US, pelvis completed vschroedter [address], [place], [address], 02/24/2023 15:44:20 Procedure Notes None recorded. Medical Equipment None Reported. Allergies Allergen ID Allergen Name Allergen Category Reaction Reaction Severity Criticality Documentation Date Start Date Code Code System Note Provider Name and Address Organization Details Recorded Time 34846 POLLEN EXTRACTS environme nt,medica tion Not available Not available Not available 05/19/2020 [id number] RxNorm Comme nt: [facility]; Not Available [facility] 0 14:24:33 Medications Name Sig Start Date Stop Date Status Note LastModified by Organization Details LastModified Time lamotrigi ne 150 mg tablet TAKE 1 TABLET BY MOUTH EVERY DAY active Not Available Not Available No t Available metformin 500 mg tablet TAKE 1 TABLET BY MOUTH TWICE DAILY active Not Available Not Available No t Available sulfasala zine 500 mg tablet TAKE 2 TABLETS BY MOUTH FOUR TIMES DAILY AFTER MEALS 04/11 completed Not Available Not Available Not Available Vitamin C 500 mg tablet TAKE 1 TABLET BY MOUTH ONCE DAILY WITH FERROUS SULFATE TABLET active Not Available Not Available No t Available cetirizin e 10 mg tablet TAKE 1 TABLET BY MOUTH ONCE DAILY active Not Available Not Available No t Available ibuprofen 800 mg tablet TAKE 1 TABLET BY MOUTH 2 HOURS BEFORE THE PROCEDUR E active Not Available Not Available No t Available diphenoxy late-atro pine 2.5 mg-0.025 mg tablet TAKE 1 TABLET BY MOUTH TWICE DAILY NEEDED active Not Available Not Available No t Available ciproflox acin 500 mg tablet TAKE 1 TABLET BY MOUTH EVERY 12 HOURS FOR 7 DAYS active Not Available Not Available No t Available peg-elect rolyte solution 420 gram oral solution MIX AND DRINK BY MOUTH DIRECTED BY OFFICE. active Not Available Not Available No t Available ondansetr on 8 mg disintegr ating tablet DISSOLVE 1 TABLET ON THE TONGUE 2 HOURS BEFORE PROCEDUR E 04/11 completed Not Available Not Available Not Available alprazola m 0.5 mg tablet TAKE 1 TABLET BY MOUTH 2 HOURS BEFORE THE PROCEDUR E 04/11 completed Not Available Not Available Not Available Xanax 0.25 mg tablet take 1 tablet by oral route 3 times every day 10/10 completed Prescrib ed Elsewher e: Yes Loca tion: [facility] odify By: ashli Vo ncounter DateTime : 03/24/20 01:00:00 PM Not Available Not Available Not Available Lamictal 25 mg tablet take 2 tablet by oral route 2 times every day 04/11 completed Prescrib ed Elsewher e: Yes Loca tion: [facility] odify By: ashli Vo ncounter DateTime : 03/24/20 18 01:00:00 PM Not Available Not Available Not Available flunisoli de 25 mcg (0.025 %) nasal spray active Not Available Not Available Not Available promethaz ine 25 mg tablet TAKE 1/2 TABLET BY MOUTH EVERY 6 HOURS NEEDED FOR NAUSEA active Not Available Not Available No t Available [employer] 10 mg-325 mg tablet Take 1 tablet 2 hours before the procedur e. 04/11 completed Not Available Not Available Not Available albuterol sulfate HFA 90 mcg/actua tion aerosol inhaler INHALE 2 PUFFS BY MOUTH EVERY 4 TO 6 HOURS NEEDED FOR SHORTNES S OF BREATH active Not Available Not Available No t Available norethind cj (contrace ptive) 0.35 mg tablet TAKE 1 TABLET BY MOUTH EVERY DAY 04/11 completed Not Available Not Available Not Available fluticaso ne propionat e 50 mcg/actua tion nasal spray,skyler pension SPRAY 1 TO 2 SPRAYS IN EACH NOSTRIL TWICE DAILY active Not Available Not Available No t Available lamotrigi ne 100 mg tablet TAKE 1 TABLET BY MOUTH EVERY DAY active Not Available Not Available No t Available amoxicill in 875 mg-potass ium clavulana te 125 mg tablet TAKE 1 TABLET BY MOUTH EVERY 12 HOURS FOR 5 DAYS active Not Available Not Available No t Available amoxicill in 500 mg-potass ium clavulana te 125 mg tablet TAKE 1 TABLET BY MOUTH TWICE DAILY 02/06 completed Not Available Not Available Not Available buspirone 15 mg tablet TAKE 1 TABLET BY MOUTH THREE TIMES DAILY active Not Available Not Available No t Available escitalop edna 20 mg tablet TAKE 1 TABLET BY MOUTH EVERY DAY active Not Available Not Available No t Available rosuvasta tin 20 mg tablet TAKE 1 TABLET BY MOUTH EVERY DAY active Not Available Not Available No t Available 1.5/30 (28) 1.5 mg-30 mcg (21)/75 mg (7) tablet TAKE 1 TABLET BY MOUTH EVERY DAY (must keep appointm ent) 2024 active Not Available Not Available Not Avai lable Lexapro 5 mg tablet take 1 tablet by oral route every day 10/10 completed Prescrib ed Elsewher e: Yes Loca tion: [facility] odify By: [email or web address] Vo ncounter DateTime : 03/24/20 01:00:00 PM Not Available Not Available Not Available FeroSul 325 mg (65 mg iron) tablet TAKE 1 TABLET BY MOUTH DAILY ALONG WITH VITAMINC TABLET 04/11 completed Not Available Not Available Not Available Lysteda 650 mg tablet take 2 tablet by oral route 3 times every day during menses 10/10 completed Prescrib ed Elsewher e: No Locat ion: [facility] odify By: graciela tz Encou nter DateTime : 03/24/20 01:00:00 PM Not Available Not Available Not Available Vitals Date Recorded Body height Body mass index (BMI) Body weight Systolic blood pressure Diastolic blood pressure Provider Name and Address Organization Details Last Updated DateTime 03/07/2023 157.48 cm 28.2 kg/m2 89087.22 g 125 mm[Hg] 75 mm[Hg] Annel Hernandez [facility] 3 11:48:59 Date Recorded Body height Body mass index (BMI) Body weight Systolic blood pressure Diastolic blood pressure Provider Name and Address Organization Details Last Updated DateTime 03/28/2023 157.48 cm 28 kg/m2 39583.63 g 114 mm[Hg] 75 mm[Hg] Annel Hernandez [facility] 15:41:19 Date Recorded Body height Body mass index (BMI) Body weight Systolic blood pressure Diastolic blood pressure Provider Name and Address Organization Details Last Updated DateTime 04/11/2023 157.48 cm 28.3 kg/m2 07750.82 g 108 mm[Hg] 69 mm[Hg] Ирина Wing [facility] 3 12:05:33 Date Recorded Body height Systolic blood pressure Diastolic blood pressure Provider Name and Address Organization Details Last Updated DateTime 03/09/2024 157.48 cm 105 mm[Hg] 73 mm[Hg] Wendy Solo [facility] 03/09/2024 10:32:46 Social History Question Answer Notes LastModified by Organizat ion Details LastModified Time Tobacco Smoking Status Never [facility] 02/06/2023 16:43:47 What Is Your Level Of Alcohol Consumption? None Information not available 10/10/2022 Are You Blind Or Do You Have Difficulty Seeing? No Information not available 10/10/2022 What Is Your Level Of Caffeine Consumption? Occasional Information not available 02/06/2023 How Much Tobacco Do You Chew? None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
--- OUTSIDE RECORDS SUMMARY | 2024-08-12 12:03 | XMS_ITS | Referral Summary ---
Author Organization [facility] Address [address] [place] [address] Care Team Providers Care 21 Dealer Name Role Phone Jeff Quispe MD Primary Care Provider [phone] Allergies Active Allergy Reactions Criticality Noted Date [...] Active Active Problems No known active problems Social History Tobacco Use Types Packs/Day Years Used Date Smoking Tobacco: Never Tobacco Cessation:Counseling Given: Not Answered Personal Safety Answer Date Recorded Getting School Help Needed Not on file 05/19 Comments Unknown Sex and Gender Information Value Date Recorded Sex Assigned at Not on file Legal Sex Female 1:44 PM PATIENT INTAKE REPRESENTATIVE Gender Identity Not on file Sexual Orientation Not on file Plan of Treatment Not on file Insurance [facility] Member Subscriber Plan / Payer ( fective 2023-Present) Name:Radha Guzman Relation to Subscriber:Self Name:Radha Guzman Payer ID:[id number] (NAIC) Group ID:Not on file Type:MEDICAID RISK OTHER Address: ATTN: CLAIMS DEPT [address] [place], [place] [address] Care Teams 21 Dealer Relationship Specialty Start Date End Date Jeff Quispe MD PCP - General Family Medicine 04/29/23
[2024-08-12 12:07] LABS: Iron 94 ug/dL (37-170)
[2024-08-12 12:19] LABS: Percent Iron Saturation 23 % (20-50)
[2024-08-12 22:10] LABS: Folic Acid 9.2 ng/mL (2.76->20)
== END 2024-08-12 10:26 | disposition home or self-care (01) ==
LOC: ANHLAB 10:26
PROVIDERS: PCP Family Medicine; Visit Provider Internal Medicine Hematology & Oncology
DX: D51.9 Vitamin B12 deficiency anemia, unspecified (principal); D50.0 Iron deficiency anemia secondary to blood loss (chronic)
CPT/HCPCS: 36415; 82607; 82728; 82746; 83540; 83550; 85027

== ENCOUNTER 2024-10-06 10:59 | Outpatient (CLI) | payer OTHER, SELFPAY ==
--- OUTSIDE RECORDS SUMMARY | 2024-10-06 11:51 | XMS_ITS | Clinical Summary ---
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
--- OUTSIDE RECORDS SUMMARY | 2024-10-06 11:51 | XMS_ITS | Referral Summary ---
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
--- OUTSIDE RECORDS SUMMARY | 2024-10-06 11:51 | XMS_ITS | Clinical Summary ---
Author Organization [facility] Marco Antonio mckenzie [place] Address [address] [place] [address] Care Team Providers Care Tactical/Mobile Watch Officer Name Role Phone Jeff Quispe MD Primary Care Provider + [phone] Allergies No known active allergies Medications buspirone HCl (BUSPIRONE ORAL) Take 15 mg by mouth daily. Active norethindrone ac-eth estradiol (JUNEL , ORAL) Take by mouth. Active cetirizine (ZyrTEC) [...] Encounters Date Type Department Care Team Description 09/14/2024 External Device Data [facility] ABSTRACTION Provider, Abstract 08/18/2024 External Device Data [facility]CTION Provider, Abstract 08/18/2024 External Device Data [facility] Provider, Abstract 08/16/2024 Orders Only [facility] H[facility]ology - [place] [address] [place] [address] Jay Andersen MD 08/13/2024 12:15 PM CDT Office Visit [facility] [place] [address] [place] [id number] Jay Andersen MD Iron deficiency anemia due to chronic blood loss (Primary Dx); Anemia due to vitamin B12 deficiency, unspecified B12 deficiency type 08/07/2024 External Device Data [facility] Provider, Abstract 08/04/2024 External Device Data [facility] Provider, Abstract 07/21/2024 External Device Data [facility]CTION Provider, Abstract from Last 3 Months Family History Medical [...] on file 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 Gender Identity Not on file Sexual Orientation Not on file Last Filed Vital Signs Vital Sign Reading Time Taken Comments Blood Pressure 111/62 08/13/2024 11:58 AM CDT Pulse 100 08/13/2024 11:58 AM CDT Temperature 36.5 C (97.7 F) 08/13/2024 11:58 AM CDT Respiratory Rate 14 08/13/2024 11:5 8 AM CDT Oxygen Saturation 97% 08/13/2024 11: 58 AM CDT Inhaled Oxygen Concentration - - Weight 69.8 kg (153 lb 12.8 oz) 025 11:58 AM CDT Height 157.5 cm (5' 2 ) 05/12/2023 2:46 PM CHILD DAYCARE WORKER Body Mass Index 28.13 05/12/2023 2:46 PM CHILD DAYCARE WORKER Plan of Treatment Upcoming Encounters Date Type Department Care Team (Late st Contact Info) Description 02/18/2025 11:30 AM CDT Office Visit [facility] Oncology [facility] Hematology - [place] [address] [place] [address] Jay Andersen MD [address] [facility] [address] [place] [address] Health Maintenance Due Date Last Done Comments Pre-Diabetes and Diabetes Screening 1989 DTAP/TDAP/TD VACCINES (1 - Tdap) 2008 HEPATITIS B VACCINES (1 of 3 - 19+ 3-dose series) 2008 HPV/Cotest (21-29) 2010 CERVICAL CANCER SCREENING 2019 HPV/Cotest (30-65) 2019 PAP SMEAR 2019 INFLUENZA VACCINE (#1) 2024 HPV VACCINES Aged Out No longer eligi ble based on patient's age to complete this topic Procedures Procedure Name Priority Date/Time Associated Diagnosis Comments VITAMIN B12 LEVEL Routine 08/12/2024 1:17 PM CDT VITAMIN B12 LEVEL Routine 08/12/2024 11:43 AM CDT from Last 3 Months Results * VITAMIN B12 LEVEL (08/12/2024 1:17 PM CDT) Only the most recent of2 resultswithin the time period is included. Blood Jay Andersen MD CHEMISTRY ORDERABLES Final Resu lt from Last 3 Months Insurance MEDICAID Care Teams Tactical/Mobile Watch Officer Relationship Specialty Start Date End Date Jeff Quispe MD [address] [place] [address] PCP - General Family Practice 05/12/23
--- OUTSIDE RECORDS SUMMARY | 2024-10-06 11:51 | XMS_ITS | Clinical Summary ---
Author Organization [facility] Address [address] [place] [address] Care Team Providers Care Production Worker Name Role Phone Unavailable Primary Care Provider Unavailabl e Social History Tobacco Use Types Packs/Day Years Used Date Smoking Tobacco: Never Assessed Comments Unknown Sex and Gender Information Value Date Recorded Sex Assigned at Not on file Legal Sex Female 1:10 PM REMELT WORKER Gender Identity Not on file Sexual [...]
== END 2024-10-06 11:00 | disposition home or self-care (01) ==
LOC: ANHAUDIO 10:59
PROVIDERS: PCP Family Medicine; Visit Provider Otolaryngology
DX: H93.11 Tinnitus, right ear (principal)
CPT/HCPCS: 92557; 92567

== ENCOUNTER 2025-01-14 13:05 | Outpatient (CLI) | payer OTHER, SELFPAY ==
--- OUTSIDE RECORDS SUMMARY | 2025-01-14 13:10 | XMS_ITS | Clinical Summary ---
Author Organization [facility] Address [address] [place] [address] Care Team Providers Care Geophysical Support Specialist Name Role Phone Jeff Quispe MD Primary Care Provider + [phone] Allergies No known active allergies Medications buspirone [...] Encounters Date Type Department Care Team Description 01/04/2025 External Device Data [facility]CTION Provider, Abstract 12/15/2024 External Device Data [facility] ABSTRACTION Provider, Abstract 12/15/2024 External Device Data [facility] Provider, Abstract 11/23/2024 External Device Data [facility]STRACTION Provider, Abstract 11/17/2024 External Device Data [facility]STRACTION Provider, Abstract 10/26/2024 External Device Data [facility] Provider, Abstract 10/21/2024 External Device Data [facility] Provider, Abstract 10/20/2024 External Device Data [facility]STRACTION Provider, Abstract [...] on file 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 Gender Identity Not on file Sexual [...] 11:58 AM CDT Height 157.5 cm (5' 2) 05/12/2023 2:46 PM FOLDING MACHINE OPERATOR Body Mass Index 28.13 05/12/2023 2:46 PM FOLDING MACHINE OPERATOR Plan of Treatment Upcoming Encounters Date Type Department Care Team (Late st Contact Info) Description 02/18/2025 11:30 AM CDT Office Visit [facility] Oncology and H[facility]ology - [place] [address] [place] [address] [address] Jay Andersen MD [address] [facility] [address] [place] [address] Health Maintenance Due Date Last Done Comments Pre-Diabetes and Diabetes Screening 1989 HPV VACCINES (1 - 3-dose series) 2004 DTAP/TDAP/TD VACCINES (1 - Tdap) 2008 HEPATITIS B VACCINES (1 of 3 - 19+ 3-dose series) 07/04 HPV/Cotest (21-29) 2010 CERVICAL CANCER SCREENING 2019 HPV/Cotest (30-65) 2019 PAP SMEAR 2019 INFLUENZA VACCINE (#1) 2024 Insurance [facility] MEDICAID Care Teams Geophysical Support Specialist Relationship Specialty Start Date End Date Jeff Quispe MD [address] [place] [address] PCP - General Family Practice 05/12/23
--- OUTSIDE RECORDS SUMMARY | 2025-01-14 13:10 | XMS_ITS | Clinical Summary ---
Author Organization [facility] Address [address] [place] [address] Care Team Providers Care Domestic Technician Name Role Phone Jeff Quispe MD Primary Care Provider [phone] Allergies Active Allergy Reactions Criticality Noted Date [...] on file Legal Sex Female 1:44 PM SCREEN STRETCHER Gender Identity Not on file Sexual Orientation [...] 2024 04/29/2021, 10/11/2020, 09/13/2020 Influenza Vaccine (#1) 2025 04/03/2020 Hepatitis B Screening Completed 09/24/2000 , 03/10/2000, 10/20/1999 Pneumococcal vaccine <65 Aged Out No longer eligible based on patient's age to complete this topic Insurance [facility] Care Teams Domestic Technician Relationship Specialty Start Date End Date Jeff Quispe MD PCP - General Family Medicine 04/29/23
--- OUTSIDE RECORDS SUMMARY | 2025-01-14 13:10 | XMS_ITS | Clinical Summary ---
Author Organization [facility] Address [address] [place] [address] Care Team Providers Care Hand Rigger Name Role Phone Unavailable Primary Care Provider Unavailabl e Social History Tobacco Use Types Packs/Day Years Used Date Smoking Tobacco: Never Assessed Comments Unknown Sex and Gender Information Value Date Recorded Sex Assigned at Not on file Legal Sex Female 1:10 PM GRINDING MILL OPERATOR Gender Identity Not on file Sexual Orientation Not on file Plan of Treatment Health Maintenance Due Date Last Done Comments Hepatitis C Virus (HCV) Screening 1989 TdaP Immunization 1989 Hepatitis B Immunization (1 of 3 - 19+ 3-dose series) 2008 Pap Smear 2010 Human Papillomavirus (HPV) Immunization (1 - 3-dose SCDM series) 2016 Cervical Cancer Screening (CCS) 2019 HPV/Cotest 2019 SARS-COV-2 Immunization ( - 2023- season) 2024 Influenza Immunization (#1) 2025 Respiratory Syncytial Virus (RSV) Immunization (Adult) (1 [...]
== END 2025-01-14 13:06 | disposition home or self-care (01) ==
LOC: ANHLAB 13:08
PROVIDERS: PCP Family Medicine; Visit Provider Nurse Practitioner Family
DX: R19.7 Diarrhea, unspecified (principal)
CPT/HCPCS: 87045; 87046; 87177; 87338; 87427

== ENCOUNTER 2025-01-27 11:46 | Outpatient (CLI) | payer OTHER, SELFPAY ==
--- NOTE | ~2025-01-27 | XR_ITS ---
EXAMINATION: [id number], 01/27/2025 12:10 CDT HISTORY: pain in right foot, DORSAL RT FOOT COMPARISON: No comparisons available. Findings: Postsurgical changes first metatarsal. No fracture or dislocation. No significant degenerative changes. Soft tissues unremarkable. Impression: No acute fracture or malalignment. Reviewed, dictated and finalized at location A. Impression: No acute fracture or malalignment.
--- OUTSIDE RECORDS SUMMARY | 2025-01-27 11:54 | XMS_ITS | Clinical Summary ---
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 Gender Identity Not on file Sexual Orientation [...] 157.5 cm (5' 2) 05/12/2023 2:46 PM HOSPITAL ADMISSIONS CLERK Body Mass Index 28.13 05/12/2023 2:46 PM HOSPITAL ADMISSIONS CLERK Plan of Treatment Upcoming Encounters Date Type Department Care Team (Late st Contact Info) Description 02/18/2025 11:30 AM CDT Office Visit [facility] On[facility] H[facility] - [place] [address] [place] [address] [address] Jay Andersen MD [address] [place] [address] Health Maintenance Due Date Last Done Comments Pre-Diabetes and Diabetes Screening 1989 DTAP/TDAP/TD VACCINES (1 - Tdap) 2008 HEPATITIS B VACCINES (1 of 3 - 19+ 3-dose series) 07/04 HPV/Cotest (21-29) 2010 HPV VACCINES (1 - 3-dose SCDM series) 2016 CERVICAL CANCER SCREENING 2019 HPV/Cotest (30-65) 2019 PAP SMEAR 2019 INFLUENZA VACCINE (#1) 2024 Insurance [facility] MEDICAID Care Teams Garment Sewer Hand Relationship Specialty Start Date End Date Jeff Quispe MD [address] [place] [address] PCP - General Family Practice 05/12/23
--- OUTSIDE RECORDS SUMMARY | 2025-01-27 11:54 | XMS_ITS | Clinical Summary ---
Author Organization [facility] Address [address] [place] [id number] Care Team Providers Care Wood Grinder Name Role Phone Jeff Quispe MD Primary Care Provider [phone] Allergies Active Allergy Reactions Criticality Noted Date [...] on file Legal Sex Female 1:44 PM LPN RN Gender Identity Not on file Sexual Orientation [...] patient's age to complete this topic Insurance [facility] Care Teams Wood Grinder Relationship Specialty Start Date End Date Jeff Quispe MD PCP - General Family Medicine 04/29/23
--- OUTSIDE RECORDS SUMMARY | 2025-01-27 11:54 | XMS_ITS | Clinical Summary ---
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
== END 2025-01-27 11:47 | disposition home or self-care (01) ==
LOC: ANHIMG 11:52
PROVIDERS: PCP Family Medicine; Visit Provider Nurse Practitioner Family
DX: M79.671 Pain in right foot (principal)
CPT/HCPCS: 73630

== ENCOUNTER 2025-06-01 10:19 | Outpatient (CLI) | payer OTHER, SELFPAY ==
--- OUTSIDE RECORDS SUMMARY | 2025-06-01 10:31 | XMS_ITS | Clinical Summary ---
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
--- OUTSIDE RECORDS SUMMARY | 2025-06-01 10:31 | XMS_ITS | Clinical Summary ---
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
--- OUTSIDE RECORDS SUMMARY | 2025-06-01 10:31 | XMS_ITS | Clinical Summary ---
Author Organization 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 Oncology and Hematology [facility] [address] [place] [address] [facility] [address] [place] [address] Jay Andersen MD [address] [facility] [address] [place] [address] Health Maintenance Due Date Last Done Comments Pre-Diabetes and Diabetes Screening 1989 DTAP/TDAP/TD VACCINES (1 - Tdap) 2008 HEPATITIS B VACCINES (1 of 3 - 19+ 3-dose series) 07/04 HPV/Cotest (21-29) 2010 CERVICAL CANCER SCREENING 2019 HPV/Cotest (30-65) 2019 PAP SMEAR 2019 INFLUENZA VACCINE (#1) 2024 HPV VACCINES (No Doses Required) Completed Insurance MEDICAID Care Teams Assessment Services Manager Relationship Specialty Start Date End Date Jeff Quispe MD [address] [place], [place] [id number] PCP - General Family Practice 05/12/23
[2025-06-01 11:00] LABS: Hematocrit 36.6 % (37.0-47.0); Hemoglobin 11.9 g/dL (12.0-15.0); Mean Corpuscular HGB Conc 32.5 g/dl (32-36); Mean Corpuscular Hemoglobin 31.3 pg (26-34); Mean Corpuscular Volume 96.3 fl (80-100); Platelet Count Result 297 k/mm3 (150-375); Red Blood Count 3.80 M/mm3 (4.2-5.4); White Blood Count 6.3 K/mm3 (4.5-10.0)
[2025-06-01 12:56] LABS: Alanine Aminotransferase 14 U/L (6-35); Albumin Level 4.2 g/dL (3.5-5.1); Alkaline Phosphatase 56 U/L (38-126); Anion Gap 7 mmol/L (4-12); Aspartate Amino Transferase 41 U/L (14-36); Bilirubin,Total 0.3 mg/dL (0.2-1.3); Blood Urea Nitrogen 12 mg/dL (7-17); Calcium 9.2 mg/dL (8.4-10.2); Carbon Dioxide 26 mmol/L (22-30); Chloride 108 mmol/L (98-107); Cholesterol 299 mg/dL (0-200); Estimated Glomerular Filt Rate > 60; Glucose 91 mg/dL (65-110); HDL Direct 47 mg/dL; Magnesium 1.9 mg/dL (1.6-2.3); Potassium 3.6 mmol/L (3.4-5.0); Sodium 141 mmol/L (137-145); Total Protein 7.1 g/dL (6.3-8.2); Triglycerides 98 mg/dL (<150)
[2025-06-01 13:02] LABS: Iron 69 ug/dL (37-170)
[2025-06-01 13:34] LABS: Thyroid Stimulating Hormone 3.210 uIU/mL (0.465-4.680)
[2025-06-01 13:43] LABS: Percent Iron Saturation 19 % (20-50)
[2025-06-01 13:44] LABS: Ferritin 27.40 ng/mL (6.24-137)
[2025-06-01 14:09] LABS: Vitamin B12 321.0 pg/mL (239-931)
[2025-06-01 14:10] LABS: Hemoglobin A1C 4.4 % (<5.7)
== END 2025-06-01 10:20 | disposition home or self-care (01) ==
LOC: ANHLAB 10:19
PROVIDERS: PCP Family Medicine; Visit Provider Internal Medicine Hematology & Oncology
DX: Z13.1 Encounter for screening for diabetes mellitus (principal); D51.9 Vitamin B12 deficiency anemia, unspecified; D50.0 Iron deficiency anemia secondary to blood loss (chronic); R53.83 Other fatigue; R53.1 Weakness; E78.5 Hyperlipidemia, unspecified
CPT/HCPCS: 36415; 80053; 80061; 82306; 82607; 82728; 82746; 83036; 83540; 83550; 83735; 84443; 85027